=== PATIENT | female | born 1960 | race African-American/Black ===

== ENCOUNTER 2017-03-25 06:00 | Day surgery (SDC) | payer OTHER ==
[~2017-03-25] VITALS: Ht 154.9 cm; Wt 60.8 kg
[2017-03-25] VITALS (11 sets, daily range): BP systolic 90–129; BP diastolic 50–69
[2017-03-25] MEDS ORDERED: Dexamethasone 4mg/ml vial ONE (06:46)
[2017-03-25] MEDS ORDERED: Lidocaine 1% MPF 10mg/ml 5ml ONE (06:46)
[2017-03-25] MEDS ORDERED: BSS 500ml btl ONE (06:46)
[2017-03-25] MEDS ORDERED: Tobradex Opth Susp 2.5ml ONE ×2 (06:46→07:22)
[2017-03-25] MEDS ORDERED: BSS 15ml BTL ONE (06:47)
[2017-03-25] MEDS ORDERED: Akten 3.5% 1ml Btl ONE ×2 (06:47→07:21)
[2017-03-25] MEDS ORDERED: EPINEPHrine 1mg/1ml Amp ONE (06:47)
[2017-03-25] MEDS ORDERED: Povidone-Iodine 5% opth solution ONE (06:47)
[2017-03-25] MEDS ORDERED: Diclofenac Sod 0.1% Op Soln ONE (07:21)
[2017-03-25] MEDS ORDERED: Tropicamide 1% Opth Soln ONE (07:22)
[2017-03-25] MEDS ORDERED: Gatifloxacin Opth Solution 0.5% ONE (07:22)
[2017-03-25] MEDS ORDERED: Phenylephrine 2.5% Op Soln ONE (07:22)
[2017-03-25] MEDS: Tropicamide 1% Opth Soln RIGHT EYE SCH ×3 (07:28→07:48)
[2017-03-25] MEDS: Akten 3.5% 1ml Btl RIGHT EYE SCH ×3 (07:28→07:48)
[2017-03-25] MEDS: Tobradex Opth Susp 2.5ml RIGHT EYE SCH ×3 (07:28→07:48)
[2017-03-25] MEDS: Phenylephrine 2.5% Op Soln RIGHT EYE SCH ×3 (07:28→07:48)
[2017-03-25] MEDS: Diclofenac Sod 0.1% Op Soln RIGHT EYE SCH ×3 (07:29→07:48)
[2017-03-25] MEDS: Gatifloxacin Opth Solution 0.5% RIGHT EYE SCH ×3 (07:29→07:48)
--- NOTE | 2017-03-25 07:37 | Pre-Procedure Note/Attestation ---
Pre-Procedure Note/Attestation Complete Prior to Procedure Planned Procedure: right Procedure Narrative: cataract extraction with implant right eye Indications for Procedure Pre-Operative Diagnosis: cataract right eye Attestation I attest that I discussed the nature of the procedure; its benefits; risks and complications; and alternatives (and the risks and benefits of such alternatives ), prior to the procedure, with the patient (or the patient's legal customer field representative). I attest that, if there was a reasonable possibility of needing a blood transfusion, the patient (or the patient's legal customer field representative) was given the [facility] standardized written summary, pursuant to the [place] Blood Safety Act ([place] Health and Safety Code # 1645, as amended). I attest that I re-evaluated the patient just prior to the surgery and that there has been no change in the patient's H&P, except as documented below: TRISTAN COSME Mar 25, 2017 07:37
[2017-03-25] MEDS ORDERED: VITAMIN D31000 UNI1 PO (07:38)
[2017-03-25] MEDS ORDERED: MULTIVITAMINS1 EAC2 ORAL (07:38)
[2017-03-25] MEDS ORDERED: Sterile Water Irrig 1000ml IRRIG ONE (08:00)
[2017-03-25] MEDS ORDERED: LR 1000ml ONE (08:00)
[2017-03-25] MEDS ORDERED: fentaNYL 100 mcg/2 mL IV ONE (08:00)
[2017-03-25] MEDS ORDERED: NS Irrig 1000ml ONE (08:00)
[2017-03-25] MEDS ORDERED: Midazolam 2mg/2ml Inj ONE (08:00)
--- NOTE | 2017-03-25 08:53 | Anethesia Preoperative Eval ---
Anesthesia Pre-op PMH/ROS General Date of Evaluation: Mar 25, 2017 Time of Evaluation: 08:52 Anesthesiologist: [email or web address] ASA Score: ASA 1 Mallampati Score Class I : Soft palate, uvula, fauces, pillars visible Class II: Soft palate, uvula, fauces visible Class III: Soft palate, base of uvula visible Class IV: Only hard plate visible Mallampati Classification: Class II Surgeon: arsh Diagnosis: cataract Surgical Procedure: cataract extraction with IOL Anesthesia History: none Family History: no anesthesia problems Allergies: Coded Allergies: No Known Allergies (Unverified , 03/24/17) Medications: see eMAR Past Medical History Cardiovascular: Denies: CAD, HTN, [place], arrhythmia, other, valve dz Pulmonary: Denies: COPD, CHRISTINA, asthma, other Gastrointestinal/Genitourinary: Denies: CRI, ESRD, GERD, other Endocrine: Denies: DM, hypothyroidism, other, steroids HEENT: Reports: cataract (R) Hematology/Immune: Denies: DVT, anemia, bleeding disorder, other Musculoskeletal/Integumentary: Denies: DDD, DJD, OA, RA, edema, other PSxH Narrative: cyst removal Anesthesia Pre-op Phys. Exam Physician Exam Last Vital Signs Date Time Temp Pulse Resp B/P Pulse Ox O2 Delivery O2 Flow Rate FiO2 03/25/17 07:31 97.7 57 20 129/67 100 Room Air Constitutional: NAD Neurologic: CN 2-12 intact Cardiovascular: RRR Respiratory: CTA Gastrointestinal: S/NT/ND Airway Exam Mallampati Score: Class II MO: full ROM: full Dentures: no lower, no upper Anesthesia Pre-op A/P Studies Pre-op Studies: EKG - sr Risk Assessment & Plan Plan: mac Status Change Before Surgery: No Pre-Antibiotics Drug: none Given Within 1 Hr of Incision: No XENIA BORJAS CRNA Mar 25, 2017 08:53
[2017-03-25] MEDS ORDERED: acetaZOLAMIDE 500mg Inj ONE (09:40)
[2017-03-25] MEDS ORDERED: Sodium Hyaluronate 10 mg/ml 0.85ml ONE ×2 (09:40→09:59)
--- NOTE | 2017-03-25 09:52 | Brief Operative Note ---
Immediate Post Operative Note Operative Note Pre-op Diagnosis: cataract right eye Procedure: phacoemulsification of cataract with implant right eye Post-op Diagnosis: traumatic cataract with zonular dehiscence right eye Surgeon: tristan caban Registered Pharmacist: none Anesthesiologist: nicolas kline crna Anesthesia: MAC Specimen: none Complications: none Condition: stable Estimated Blood Loss: none Drains: none Implant(s) used?: Yes TRISTAN CABAN Mar 25, 2017 09:52
--- NOTE | 2017-03-25 10:17 | Immediate Post-Op Evaluation ---
Immediate Post-Op Evalulation Immediate Post-Op Evalulation Procedure: cataract extraction with IOL Date of Evaluation: Mar 25, 2017 Time of Evaluation: 09:46 IV Fluids: 300 Blood Pressure Systolic: 100 Blood Pressure Diastolic: 69 Pulse Rate: 60 Respiratory Rate: 14 O2 Sat by Pulse Oximetry: 100 Temperature (Fahrenheit): 97.6 Nausea: No Vomiting: No Complications none Patient Status: awake, reacts, patent Hydration Status: adequate Drug: none XENIA BORJAS RAIL PROJECT ENGINEER Mar 25, 2017 10:17
--- NOTE | 2017-03-25 10:40 | 48 Hour Post Anesthesia Eval ---
Post Anesthesia Evaluation Procedure: cataract extraction with IOL Date of Evaluation: Mar 25, 2017 Time of Evaluation: 10:40 Blood Pressure Systolic: 90 0: 50 Pulse Rate: 87 Respiratory Rate: 14 O2 Sat by Pulse Oximetry: 99 Airway: patent Nausea: No Vomiting: No Hydration Status: adequate Cardiopulmonary Status: stable Mental Status/LOC: patient returned to baseline Post-Anesthesia Complications: none Follow-up care needed: N/A XENIA BORJAS CRNA Mar 25, 2017 10:40
--- NOTE | 2017-03-25 17:30 | Operative Note - Dictated ---
DATE OF OPERATION: 03/25/2017 PREOPERATIVE DIAGNOSIS: Traumatic cataract, right eye. POSTOPERATIVE DIAGNOSIS: Traumatic cataract, right eye. PROCEDURE: Phacoemulsification cataract right eye with placement of posterior chamber intraocular lens. SURGEON: Pito Land M.D. CLERGY MEMBER: None. ANESTHESIA: MAC/topical. ANESTHESIOLOGIST: Mecca Omer C.R.N.A. INDICATION PROCEDURE: Poor vision, right eye. DESCRIPTION OF FINDINGS: Dense cortical cataract with zonular dehiscence from 3 o' clock to 6 o' clock position. DESCRIPTION OF PROCEDURE: The patient received a topical anesthetic block consisting of 3.5% Akten eye drops. The eye was prepped and draped in the usual manner. A lid speculum was placed. An operating Zeiss microscope was positioned. A temporal corneal groove was made with a suyapa blade. A SuperSharp blade made a stab incision at the 12 o'clock position. A 0.1 mL of 1% nonpreserved intracameral lidocaine was injected. At this point, it was noted that the lens had some laxity to it. A 2.5/2.8 mm trapezoidal suyapa blade was used to complete the temporal corneal wound. A cystotome was used to create an anterior capsular flap. It was also noted that the anterior capsule was loose. There was noted to be missing zonules from one quarter of the eye at the 3 o' clock to 6 o' clock hours. There was zonular dehiscence between the 3 o'clock and 6 o'clock hours. The capsulotomy was then completed with the Utrata forceps. The phacoemulsification tip was introduced into the anterior chamber. The lens nucleus was gently removed using a phaco-fracture technique. There was some collapsing of the peripheral lens capsule with the vitreous presentation into the anterior chamber. This was removed with the A Vit. The remaining cortical material was removed with the I/A. Healon was reinstilled into the capsular bag and anterior chamber. There appeared to be a sufficient amount of anterior capsule rim to support posterior chamber implant. An Juan A foldable three piece, posterior chamber intraocular lens, model MA60AC, power 21.5 diopter, serial #[id number] was placed in the injector. The lens was put into the anterior chamber. The leading haptic was placed in the ciliary sulcus with Sinskey hook. The trailing haptic was placed in the ciliary sulcus with a bent Del Toro forceps. The implant was found to be sufficiently supported. The I/A tip was used to remove the Healon from the anterior chamber. Miochol was instilled for myosis. There was no vitreous in the anterior chamber. The wound edge was hydrated with BSS and a blunt-tipped cannula. The wound was checked and found to be watertight. The lid speculum was removed. A drop of TobraDex and Zymaxid was placed. A clear plastic shield was taped over the eye. The patient received IV Diamox. The patient tolerated well and left the operating room in good condition. Pito Land M.D. ([facility] [place]) DR: ANJALI JOB#: [id number] CC: SURAJ
== END 2017-03-25 11:05 | disposition home or self-care (01) ==
LOC: SUR 06:00
DX: H26.101 Unspecified traumatic cataract, right eye (principal); X58.XXXA Exposure to other specified factors, initial encounter; Y92.89 Other specified places as the place of occurrence of the external cause; Y99.9 Unspecified external cause status
CPT/HCPCS: 66984; J0171; J1100; J1120; J2250; J3010; J7120; V2632; 94003; 94150